=== PATIENT | male | born 1940 | race Caucasian/White ===

== ENCOUNTER → 2021-04-26 | Outpatient (CLI) | payer MEDICARE, OTHER ==
[~2021-04-26] MED LIST: ALBIPROI INH; ALBU90OI; ALBU90OI INH; ASPI325; ASPI81EC PO; BUDE.5; CHOL10002 PO; CLOP75 PO; COENZYME Q10; EZET10-40 PO; FISH1000; FISH1000 PO; FLUSAL2505 IH; HYDACE5 PO; IBUP800 PO; LOSA25 PO; MELA3 PO; METO50 PO; MONT10T; MULVITMINF; MULVITMINF PO; NITR.4SL SL; Norco 5-325 Ta1 EACH PO; RANI150; SIMV40; SULI200 PO; TAMS.4ER PO; TIOT18 INH; TRIAOI
== END | disposition home or self-care (01) ==
LOC: LAB SHORT 13:14 → LAB 13:14
DX: R05 Cough (principal)
CPT/HCPCS: 87070; 87205